=== PATIENT | female | born 1960 | race Caucasian/White ===

== ENCOUNTER 2020-05-30 19:39 | Emergency (ER) | payer MEDICAID, SELFPAY ==
[~2020-05-30] VITALS: Ht 160 cm; Wt 93.0 kg
[2020-05-30 20:31] VITALS: Ht 160 cm; Wt 93.0 kg
[2020-05-30 22:28] VITALS: BP 102/55
== END 2020-05-30 22:28 | disposition home or self-care (01) ==
LOC: ED 19:39
DX: U07.1 COVID-19 (principal); Z90.710 Acquired absence of both cervix and uterus
CPT/HCPCS: Q0092; U0003-CS